=== PATIENT | female | born 1950 | race Caucasian/White ===

== ENCOUNTER 2017-04-13 08:33 | Outpatient (CLI) | payer MEDICARE | END 2017-04-13 08:34 | disposition home or self-care (01) | LOC: BICMRI 08:33 | PROVIDERS: ATTEND Family Medicine | DX: G57.12 Meralgia paresthetica, left lower limb (principal); M47.896 Other spondylosis, lumbar region; M51.36 Other intervertebral disc degeneration, lumbar region; M51.26 Other intervertebral disc displacement, lumbar region | CPT/HCPCS: 72148 ==

== ENCOUNTER 2017-05-14 13:19 | Outpatient (CLI) | payer MEDICARE ==
[2017-05-14 14:08] LABS: Hemoglobin 13.9 g/dL (12.0-16.0); Mean Corpuscular HGB CONC 35.5 g/dL (32.0-36.0); Mean Corpuscular Hemoglobin 34.4 pg (27.0-31.0); Mean Corpuscular Volume 96.9 fl (81.0-99.0); Mean Platelet Volume 7.5 fL (7.4-10.4); Platelet Count 181 thou/uL (130-400); RBC Distribution Width 11.9 % (11.5-14.5); Red Blood Cell (RBC) Count 4.04 mill/uL (4.20-5.40); White Blood Cell (WBC) Count 7.9 thou/uL (4.8-10.8)
[2017-05-14 14:14] LABS: INR-International Normal Ratio 1.1; PTT 24.5 SEC (22.9-36.1); Prothrombin Time 14.6 SEC (12.0-14.7)
[2017-05-14 14:41] LABS: Anion Gap 11 mmol/L (10-20); BUN (Urea Nitrogen) 21 mg/dL (9.8-20.1); Calc. Creatinine Clearance 0 mL/min (70-130); Calcium 9.1 mg/dL (7.8-10.44); Carbon Dioxide 27 mmol/L (23-31); Chloride 109 mmol/L (98-107); Estimated GFR-MDRD 67; Glucose 100 mg/dL (80-115); Potassium 3.9 mmol/L (3.5-5.1); Sodium 143 mmol/L (136-145)
--- NOTE | 2017-05-22 19:50 | EKG ---
Test Reason : Blood Pressure : / mmHG Vent. Rate : 073 BPM Atrial Rate : 073 BPM P-R Int : 150 ms QRS Dur : 072 ms QT Int : 400 ms P-R-T Axes : 068 083 063 degrees QTc Int : 440 ms Normal sinus rhythm Normal ECG When compared with ECG of 24-MAR-2014 11:34, No significant change was found Confirmed by ERMIAS ONTIVEROS (2) on 05/22/2017 7:49:38 PM Referred By: SUSAN Confirmed By:ERMIAS ONTIVEROS
== END 2017-05-14 13:20 | disposition home or self-care (01) ==
LOC: LABBT 13:19
PROVIDERS: ATTEND Surgery
DX: Z01.812 Encounter for preprocedural laboratory examination (principal); Z01.818 Encounter for other preprocedural examination; M51.16 Intervertebral disc disorders with radiculopathy, lumbar region
CPT/HCPCS: 80048; 85027; 85610; 85730; 93005; 93010

== ENCOUNTER 2017-05-22 10:00 | Day surgery (SDC) | payer MEDICARE ==
[2017-05-14 13:47] VITALS: BMI 26.6
[2017-05-22] MEDS ORDERED: CEFAZOLIN/Water 2 GM/20 ML SYRINGE ONE ×2 (10:26→11:29)
[2017-05-22] MEDS ORDERED: Sodium Chloride 0.9% 10 ML ONE (13:58)
[2017-05-22] MEDS ORDERED: Thrombin 5000 UNITS/5 ML VIAL ONE (13:58)
[2017-05-22] MEDS ORDERED: Fentanyl 250 MCG/5 ML VIAL ONE ×2 (14:05→17:15)
[2017-05-22] MEDS ORDERED: PROPOFOL 200 MG/20 ML VIAL ONE (15:02)
[2017-05-22] MEDS ORDERED: Ondansetron HCl/PF 4 MG/2 ML Vial ONE (15:02)
[2017-05-22] MEDS ORDERED: Lidocaine 1% PF 5 ML VIAL ONE (15:02)
[2017-05-22] MEDS ORDERED: ePHEDrine/0.9% NaCl/PF SYRINGE 50 mg/10 ml ONE (15:02)
[2017-05-22] MEDS ORDERED: PHENYLEPHRINE-NS 100 MCG/ML 10 ML SYRINGE ONE (15:02)
[2017-05-22] MEDS ORDERED: Rocuronium Bromide 50 MG/5 ML VIAL ONE (15:12)
[2017-05-22] MEDS ORDERED: Bacitracin Zinc Ointment 30 gm TUBE ONE (16:01)
[2017-05-22] MEDS ORDERED: Milk Of Magnesia 30 ML UDCUP PO PRN (17:13)
[2017-05-22] MEDS ORDERED: Fleet Enema 133 ML BOT PR PRN (17:13)
[2017-05-22] MEDS ORDERED: Bisacodyl 10 MG SUPP PR PRN (17:13)
[2017-05-22] MEDS ORDERED: Mag-Al 1200 mg/1200 mg/30 ML UDCUP PO PRN (17:13)
[2017-05-22] MEDS ORDERED: Promethazine HCl 25 MG/ML VIAL IM PRN ×2 (17:13→17:15)
[2017-05-22] MEDS ORDERED: tiZANidine HCl 4 MG TAB PO PRN (17:13)
[2017-05-22] MEDS ORDERED: Acetaminophen 325 MG TAB PO PRN (17:13)
[2017-05-22] MEDS ORDERED: Acetaminophen/Codeine 30-300mg Tablet PO PRN (17:13)
[2017-05-22] MEDS ORDERED: Ondansetron HCl/PF 4 MG/2 ML Vial IVP PRN (17:15)
[2017-05-22] MEDS ORDERED: Morphine Sulfate 2 MG/ML SYRINGE SLOW IVP PRN (17:15)
[2017-05-22] MEDS ORDERED: Promethazine HCl 25 MG/ML VIAL SLOW IVP PRN (17:15)
[2017-05-22] MEDS ORDERED: CEFAZOLIN/Water 2 GM/20 ML SYRINGE SLOW IVP SCH (20:00)
[2017-05-22] MEDS: HYDROcodone/Acetaminophen 7.5/325 mg Tablet PO PRN (20:07)
[2017-05-22] MEDS: Sodium Chloride 0.9% 1,000 ML IV SCH (20:08)
[2017-05-22] MEDS ORDERED: Pravastatin Sodium 40 MG TAB PO SCH (21:00)
[2017-05-22] MEDS: traMADol HCl 50 MG TAB PO PRN (21:01)
[2017-05-22] MEDS: CEFAZOLIN/Water 2 GM/20 ML SYRINGE SLOW IVP SCH (21:04)
[2017-05-23] MEDS: HYDROcodone/Acetaminophen 7.5/325 mg Tablet PO PRN ×2 (00:25→04:44)
[2017-05-23] MEDS: CEFAZOLIN/Water 2 GM/20 ML SYRINGE SLOW IVP SCH (05:03)
[2017-05-23] MEDS: Sodium Chloride 0.9% 1,000 ML IV SCH (05:27)
[2017-05-23 07:32] VITALS: BP 118/76; TEMP 98.2
[2017-05-23] MEDS: traMADol HCl 50 MG TAB PO PRN (08:10)
[2017-05-23] MEDS ORDERED: Morphine 5 MG/ML SYRINGE SLOW IVP PRN (08:21)
[2017-05-23] MEDS ORDERED: Hydrochlorothiazide 25 MG TAB PO SCH (09:00)
[2017-05-23] MEDS ORDERED: Valsartan 80 MG TAB PO SCH (09:00)
[2017-05-23] MEDS ORDERED: Non-Formulary Item 1 EACH (Valsartan/Hydrochlorothiazide [Valsartan-Hctz 320-12.5 Mg Tab] PO SCH (09:00)
[2017-05-23] MEDS ORDERED: Potassium Chloride 8 MEQ TAB PO SCH (09:00)
[2017-05-23] MEDS ORDERED: Magnesium Oxide 250 MG TAB PO SCH (09:00)
--- NOTE | 2017-05-23 11:10 | PRG ---
DATE OF SERVICE: 05/23/2017 Kaden Devi PA-C dictating for Christopher Landon MD This is a postoperative inpatient progress note. Ms. Kc is postoperative day #1, having undergone L1-2 left hemilaminotomy and diskectomy. Th e patient states that she is doing well postoperatively. She does have some incisional back pain and occasional left hip pain, but otherwise states that her leg pain is significantly resolved postopera tively. Pain is controlled with oral medications. She has tolerated a diet and has voided and is do ing well postoperatively. She has good strength in the bilateral lower extremities with intact sensa tion to light touch. She has not met criteria for discharge. We reviewed appropriate postoperative activity restrictions. She understands to call the office with anything additional prior to next [facility] appointment. Otherwise, we will plan for dismissal later today.
--- NOTE | 2017-05-24 14:37 | OP ---
DATE OF PROCEDURE: 05/22/2017 SURGEON: Christopher Landon M.D. GYM INSTRUCTOR: Kaden Devi PA-C. LOCATION: OR 12. PREPROCEDURE DIAGNOSIS: Left L1-L2 disk extrusion with compression of the left L2 nerve root resulti ng in low back and left leg pain. POSTPROCEDURE DIAGNOSIS: Left L1-L2 disk extrusion with compression of the left L2 nerve root result ing in low back and left leg pain. PROCEDURES: 1. Left L1-L2 hemilaminotomy, foraminotomy, and diskectomy. 2. Use of operative microscope for microdissection. DESCRIPTION OF PROCEDURE: After informed consent was obtained from the patient, the patient brought to OR 12. Proper patient pause identification was carried out. The wound was then opened with a com bination of sharp, monopolar and blunt dissection following proper sterile cleansing, preparation and draping and marking of the wound. We exposed the left L1-L2 segment. A localization film confirmed our area of interest. We then performed a left L1-L2 hemilaminotomy and foraminotomy. Microscope w as brought in for microdissection. We were able at that point to identify disk material abutting the traversing left L2 nerve root up against the left L2 pedicle. Disk material was removed and traced back to the parent disk space at the left L1-L2 and any other free fragments were removed. I ensured freedom of the left L1 and left L2 nerve root, we are satisfied with our decompression. There was n o spinal fluid leak and hemostasis was maximized throughout. The wound was then closed in anatomic l wayne following the sprinkling of vancomycin powder. The patient then emerged from anesthesia.
== END 2017-05-23 09:58 | disposition home or self-care (01) ==
LOC: SDC 10:00 → T4-B 18:18 → SDC 05-23 09:58
PROVIDERS: ATTEND Surgery
PROC: 01NB0ZZ Release Lumbar Nerve, Open Approach (ICD-10-PCS; principal; 2017-05-22)
PROC: 0SB20ZZ Excision of Lumbar Vertebral Disc, Open Approach (ICD-10-PCS; 2017-05-22)
DX: M51.16 Intervertebral disc disorders with radiculopathy, lumbar region (principal); I10 Essential (primary) hypertension; E11.9 Type 2 diabetes mellitus without complications; E78.5 Hyperlipidemia, unspecified; Z87.891 Personal history of nicotine dependence; Z79.899 Other long term (current) drug therapy; Z88.8 Allergy status to other drugs, medicaments and biological substances; Z91.048 Other nonmedicinal substance allergy status
CPT/HCPCS: 76001; J2270; A4216; J2001; J2405; J2704; J3010; J3370; J3490

== ENCOUNTER 2019-12-30 14:19 | Outpatient (CLI) | payer MEDICARE ==
--- NOTE | 2019-12-30 15:36 | RAD ---
Exam: 4 views of lumbar spine HISTORY: Low back pain with bilateral lower extremity weakness. FINDINGS: Diffuse bone demineralization. 5 lumbar type vertebra. Rightward curvature of the lumbar sp ine centered at the L2-L3 level. Lumbar spine vertebral body heights are maintained. No fracture. Mild to moderate loss of disc space height and osteophyte formation at L1-L2. Mild to moderate loss o f disc space height at L2-L3. Mild loss of disc space at L3-L4, L4-L5 and L5-S1. There are hypertrophic changes in the posterior elements from L2 through L5. Visualized sacrum and bony pelvis are intact. In the lateral neutral position, there is 2.2 mm of retrolisthesis of L2 upon L3. Upon flexion, retro listhesis is 2.1 mm. Upon extension, retrolisthesis is approximately 1 mm. IMPRESSION: 1. Rightward curvature of the lumbar spine (dextroscoliosis). 2. Multilevel degenerative changes of the lumbar spine as described above.
--- NOTE | 2019-12-30 16:57 | MRI ---
MRI OF THE LUMBAR SPINE WITHOUT CONTRAST: 12/30/19 HISTORY: Leg weakness. COMPARISON: Lumbar spine radiographs same day. FINDINGS: Aortic contour is nonaneurysmal. No hydronephrosis. Bilateral renal cortical thinning. Mild infrarenal abdominal aortic ectasia. Aorta diameter measures 21 mm. There is mild dextroscoliosis. The conus medullaris terminates near the superior L1 end plate. Levels are as follow: L1-2: Asymmetric posterior disc bulge involving the right paracentral zone lateral recess and subfora thaddeus zone. There is moderate right neural foraminal narrowing. Mild effacement of ventral CSF space of the spinal canal measuring 8 mm. L2-3: Moderate degenerative disc space height loss with circumferential disc bulge. Moderate facet ar throsis. There is mild left and moderate right neural foraminal narrowing. Mild ventral CSF space eff acement with the spinal canal measuring 9 mm. L3-4: Mild disc desiccation, height loss and small circumferential disc osteophyte complex. Minimal v entral CSF space effacement. Moderate to severe hypertrophic facet arthrosis on the right and moderat e on the left. Moderate bilateral neural foraminal narrowing. L4-5: Mild disc desiccation and height loss with a large right subforaminal and extraforaminal disc o steophyte complex abutting the exiting right L4 nerve root. There is also a superimposed small centra l disc protrusion causing minimal ventral CSF space effacement. Mild left neural foraminal narrowing. L5-S1: Normal disc height and hydration. Moderate to severe hypertrophic facet arthrosis. No neural foraminal or spinal canal narrowing. IMPRESSION: 1. Mild to moderate spondylosis as described. 2. Mild dextroscoliosis lumbar spine and associated left sided Modic type I end plate changes of L2-3. 3. High grade narrowing of the interspinous spaces which can be the source of pain with lumbar e xtension. 4. Possible partial laminectomy change on the left at L2 and L3. POS: [facility]
== END 2019-12-30 14:20 | disposition home or self-care (01) ==
LOC: TBSIIMAG 14:19
PROVIDERS: ATTEND Surgery
DX: M54.5 Low back pain (principal); M25.559 Pain in unspecified hip; M47.816 Spondylosis without myelopathy or radiculopathy, lumbar region; M48.061 Spinal stenosis, lumbar region without neurogenic claudication; M41.9 Scoliosis, unspecified
CPT/HCPCS: 72110; 72148; 72158; 82565

== ENCOUNTER 2020-02-03 14:11 | Outpatient (CLI) | payer MEDICARE ==
--- NOTE | 2020-02-03 15:34 | MRI ---
MRI LEFT SHOULDER: DATE: 02/03/2020. PROVIDED CLINICAL HISTORY: Left shoulder pain. FINDINGS: Evaluation is limited by patient motion. There is a small full-thickness partial width nonretracted tear involving the anterior distal suprasp inatus tendon at the footplate. The components of the rotator cuff appear otherwise grossly intact. The long head biceps tendon appears intact and normally located. There is extensive full-thickness articular cartilage loss involving the glenoid and portions of the humeral head. Osteophyte formation is noted arising from the humeral head. There is an inhomogeneou s appearance to the contents of the axillary recess likely reflecting synovitis or intraarticular bod ies. Numerous intraarticular bodies are seen at the anterior and posterior aspects of the joint. Degenerative tearing of the glenoid labrum is demonstrated without displacement. There is a moderate glenohumeral joint effusion. There is conspicuous intramuscular cyst formation within the supraspin atus muscle, measuring at least 5.8 cm in transverse dimension and about 1.9 cm in AP dimension. The re is greater than physiologic subacromial subdeltoid bursal fluid. Acromioclavicular osteoarthrosis is noted without significant mass effect upon the subjacent supraspinatus. Rotator cuff muscular volume appears preserved. IMPRESSION: 1. End-stage glenohumeral arthrosis. Moderate glenohumeral joint effusion with intraarticular franco s and probable synovitis. 2. Small full-thickness, partial width nonretracted tear involving the anterior distal supraspinatus tendon at the foot plate. Associated conspicuous intramuscular cyst formation within the supraspina tus muscle. 3. Acromioclavicular joint osteoarthrosis. POS: [facility]
--- NOTE | 2020-02-03 16:16 | MRI ---
MRI Cervical spine without contrast: HISTORY: Cervicalgia. COMPARISON: None FINDINGS: There is motion artifact on several sequences which does degrade image quality limiting evaluation. S equences were repeated. The craniocervical junction is unremarkable. No significant cord signal abnormality. Paravertebral soft tissues have a normal appearance and normal signal intensity. C1-2:There are degenerative changes seen at the C1-2 articulation. C2-3: Facet degenerative changes are present at this level. Minimal disc osteophyte complex is presen t. Right neural foramen is patent, but there is mild left-sided neural foraminal narrowing. Central spinal canal is patent. C3-4: Disc osteophyte complex is present at this level with facet hypertrophic changes. There is mild generalized narrowing of the central spinal canal. Mild right and moderate left-sided neural foraminal narrowing is present. C4-5: Loss of intervertebral disc height with mild endplate degenerative changes. Disc osteophyte com plex is present greater centrally. Mild facet degenerative changes are seen. Findings result in moderate central canal narrowing with flattening of the anterior aspect of the spinal cord. Moderate to severe bilateral neural foraminal narrowing is present greater on the right. C5-6: Loss of intervertebral disc height. Broad-based disc osteophyte complex is present. There are f acet degenerative changes noted. Mild facet degenerative change are seen. Moderate central canal narrowing is present with moderate to severe left and mild right-sided neural foraminal narrowing. Sl ight flattening of the anterior aspect of the spinal cord is present. C6-7: Loss of intervertebral disc height with endplate degenerative changes. Broad-based disc osteoph yte complex and mild facet degenerative changes are seen. There is moderate central canal narrowing with moderate to severe bilateral neural foraminal narrowing. C7-T1: Minimal disc osteophyte complex is present. Central spinal canal and neural foramina do appear patent. IMPRESSION: Multilevel degenerative changes with moderate and moderate to severe degrees of neural foraminal narr owing present. Greatest degree of central canal narrowing is at the C4-5 level and C5-6 levels where there is moderate central canal narrowing with flattening of the anterior aspect of the spinal cord these levels greater at the C4-5 level..
== END 2020-02-03 14:12 | disposition home or self-care (01) ==
LOC: BICMRI 14:11
PROVIDERS: ATTEND Family Medicine
DX: M25.512 Pain in left shoulder (principal); M54.2 Cervicalgia; M47.812 Spondylosis without myelopathy or radiculopathy, cervical region; M48.02 Spinal stenosis, cervical region; M19.012 Primary osteoarthritis, left shoulder; M25.412 Effusion, left shoulder; M75.102 Unspecified rotator cuff tear or rupture of left shoulder, not specified as traumatic
CPT/HCPCS: 72141

== ENCOUNTER 2020-04-19 13:45 | Inpatient (IN) | payer MEDICARE ==
[2020-05-05 13:07] VITALS: BMI 28.6
[2020-05-06] MEDS ORDERED: Vancomycin 1.5 GRAM/300 ML BAG ONE (06:06)
[2020-05-06] MEDS ORDERED: Sodium Chloride 0.9% 100 ML ONE ×2 (06:07→06:39)
[2020-05-06] MEDS ORDERED: Tranexamic Acid 1,000 MG/10 ML VIAL ONE ×2 (06:07→06:38)
[2020-05-06] MEDS ORDERED: Fentanyl 100 MCG/2 ML VIAL ONE ×4 (06:14→10:02)
[2020-05-06] MEDS ORDERED: Midazolam HCl 2 mg/2 ml Vial ONE (06:40)
[2020-05-06] MEDS ORDERED: Sodium Chloride 0.9% 10 ML ONE (06:42)
[2020-05-06] MEDS ORDERED: Fentanyl 100 MCG/2 ML VIAL SLOW IVP PRN (07:43)
[2020-05-06] MEDS ORDERED: Promethazine HCl 25 MG/ML VIAL IM PRN ×2 (07:45→09:55)
[2020-05-06] MEDS ORDERED: Ondansetron PF 4 MG/2 ML Vial IVP PRN ×2 (07:45→11:04)
[2020-05-06] MEDS ORDERED: HYDROcodone/Acetaminophen 10/325 mg Tablet PO PRN ×3 (07:45→11:04)
[2020-05-06] MEDS ORDERED: Ropivacaine 0.2% 550 ML 550 ML NERVE BLCK SCH (07:45)
[2020-05-06] MEDS ORDERED: Zolpidem Tartrate 5 MG TAB PO PRN ×2 (07:45→11:04)
[2020-05-06] MEDS ORDERED: Ketorolac Tromethamine 30 MG/ML VIAL IVP PRN (07:45)
[2020-05-06] MEDS ORDERED: traMADol HCl 50 MG TAB PO PRN ×3 (07:45→11:04)
[2020-05-06] MEDS ORDERED: Phenylephrine 10 MG/ML VIAL ONE (08:08)
[2020-05-06] MEDS ORDERED: Ondansetron HCl/PF 4 MG/2 ML Vial IVP PRN (09:55)
[2020-05-06] MEDS ORDERED: Promethazine HCl 25 MG/ML VIAL SLOW IVP PRN (09:55)
[2020-05-06] MEDS ORDERED: Dexamethasone 20 MG/5 ML VIAL ONE (10:38)
[2020-05-06] MEDS ORDERED: Lidocaine 1% PF 5 ML VIAL ONE (10:38)
[2020-05-06] MEDS ORDERED: PROPOFOL 200 MG/20 ML VIAL ONE (10:38)
[2020-05-06] MEDS ORDERED: Ondansetron PF 4 MG/2 ML Vial ONE (10:38)
[2020-05-06] MEDS ORDERED: Rocuronium Bromide 10 MG/ML (10ML VIAL) ONE (10:38)
[2020-05-06] MEDS ORDERED: Glycopyrrolate 0.2 MG/ML 5 ML SYRINGE ONE (10:38)
[2020-05-06] MEDS ORDERED: PHENYLEPHRINE-NS 100 MCG/ML 10 ML SYRINGE ONE (10:38)
[2020-05-06] MEDS ORDERED: Ropivacaine 0.5% HCl/PF (150 MG/30 ML VIAL) ONE (10:38)
[2020-05-06] MEDS ORDERED: Ondansetron ODT 4 MG TAB PO PRN (11:04)
[2020-05-06] MEDS ORDERED: Milk Of Magnesia 30 ML UDCUP PO PRN (11:04)
[2020-05-06] MEDS ORDERED: Acetaminophen 325 MG TAB PO PRN (11:04)
[2020-05-06] MEDS ORDERED: Methocarbamol 1 GM/10 ML VIAL SLOW IVP PRN (11:04)
[2020-05-06] MEDS ORDERED: Bisacodyl 10 MG SUPP PR PRN (11:04)
[2020-05-06] MEDS ORDERED: diphenhydrAMINE 50 MG CAP PO PRN (11:04)
[2020-05-06] MEDS ORDERED: tiZANidine HCl 4 MG TAB PO PRN (14:55)
[2020-05-06] MEDS: HYDROcodone/Acetaminophen 10/325 mg Tablet PO PRN ×2 (15:58→20:16)
[2020-05-06] MEDS: CEFAZOLIN 2 GM in Premix Bag 1 BAG IVPB SCH (16:00)
[2020-05-06] MEDS: Sodium Chloride 0.9% 1,000 ML IV SCH (16:00)
[2020-05-06] MEDS ORDERED: Vancomycin 1.5 GRAM/300 ML BAG 1.5 GM in Premix Bag 1 BAG IVPB SCH (18:00)
[2020-05-06] MEDS: traMADol HCl 50 MG TAB PO PRN (18:43)
[2020-05-07] MEDS: CEFAZOLIN 2 GM in Premix Bag 1 BAG IVPB SCH (00:27)
[2020-05-07] MEDS: HYDROcodone/Acetaminophen 10/325 mg Tablet PO PRN ×3 (00:27→09:26)
[2020-05-07] MEDS: Sodium Chloride 0.9% 1,000 ML IV SCH (02:33)
[2020-05-07] MEDS: traMADol HCl 50 MG TAB PO PRN (06:32)
[2020-05-07] MEDS ORDERED: Spironolactone 25 MG TAB PO SCH (08:00)
--- NOTE | 2020-05-07 08:19 | OP ---
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 PROCEDURES PERFORMED: Left reverse shoulder arthroplasty with biceps tenodesis. SOLAR SYSTEM DESIGNER: KATERINA Louise. ANESTHESIA: Dr. Mariama Solorio. The patient received a general endotracheal intubation with interscalene block. ESTIMATED BLOOD LOSS: 150 mL. TOURNIQUET TIME: None. IMPLANTS: Tornier Perform Reverse 25 mm standard base plate with a 35 mm center screw, two 22 mm screws and a 30 mm screw, glenosphere of 35 mm standard. The patient had a Flex 5A stem with a high offset tray, poly 36 +9 mm. ANTIBIOTICS: Vanc 1.5 g, Ancef 2 g. COMPLICATION: Transection of the cephalic vein. HISTORY OF PRESENT ILLNESS: Ms. Kc is a 70-year-old female with greater than 1 year of left shoulder pain. The patient had MRI evidence of a full-thickness rotator cuff tear with degenerative joint arthritis. I discussed with her the risks and benefits of left reverse shoulder arthroplasty. It was my concern that a primary reverse with repair would potentially fail long-term with the patient's age, bone quality, and health. I decided one procedure for definitive fixation with reverse with biceps tenodesis will be performed. She understood risks and benefits of procedure to include pain, scar, bleeding, infection, decreased range of motion and strength, continued pain despite surgical intervention, Vance deformity, damage to vital structures, loss of life or limb. The patient and family understood the risks and benefits, and elected to proceed. DESCRIPTION OF PROCEDURE: Time-out was performed designating the patient's left upper extremity as the operative site based on site, consents, and marked. After time-out, the procedure note, the patient had been prepped and draped in a sterile fashion. I made deltopectoral incision down through skin, came in, found the deltopectoral interval, took the cephalic vein laterally, came and exposed the conjoint tendon, took the leading edge of the pectoralis, placed a Kolbel retractor in place, exposed the patient's humerus. We came down through the subscapularis and subscapularis peeled, came down to the biceps groove, cut the biceps for tenotomy and tagged it. We peeled and took off the capsule inferiorly, taking down the osteophytes inferiorly to help with soft tissue space that was taken up by the osteophytes. After being happy with our inferior release, we dislocated the head. We could see the leading edge tear of the subscap that was in place, took some of the fatty tissue down anteriorly within the remnant biceps sling, we then exposed the head, cut and re-cut right at the articular cartilage margin. We started with our opening reamers, up to a size almost to 5 or 6. We kept in place, cut our retroversion. We removed the bone internally. We then broached up to a 5, placed our after we had reamed, cleaned the surface to cover the head, the humerus, and moved to the glenoid. We did a 360-degree release of the labrum. We were happy with our complete release, placed our 10-degree tilt inferiorly into the patient's base plate. We reamed inferiorly, making a smiley face inferiorly, we were right at the edge plus about 1.5 mm. We then placed our base plate after drilling our center screw and drilling bicortically, measuring center screw. We screwed our center skin specialist and placed anterior compression screw in, then a superior inferior locking screws into place, had good stability of the glenoid. We cleaned up around the base plate. Being happy with this, placed a 36 mm standard glenosphere in place, locking it in place. We moved back to the humerus, removed our manhole cover and placed at 12 o'clock position, the 6 mm poly, had good reduction, it was a little bit loose, and therefore I placed to make it little more snug. This was easily dislocatable. We then looked, liked the overall alignment, position, rotation. No signs of abutment inferiorly in axillary border or signs of impingement over head. We reduced. We dislocated our trial, removed all trials, drilled three #5 Ethibonds, two through the bone tunnels, one in and out going around the stem more laterally over the remnant cuff we then placed our implant into place, reduced the shoulder, repaired the subscap with #5 Ethibonds. We took our biceps, sewed it into the interval with a #1 Ethibond into its groove and through the cuff that had been repaired. We were able to close a remnant of the interval with #1 Vicryl. We washed. We closed with 0, 2-0, and skin with sukhwinder. The patient was placed in a dressing postoperatively. The patient will be admitted, 24 hours of antibiotics. See how she does tomorrow with ambulatory and functional status. My recreational assistant helped me with the positioning, opening, exposure, implant trialing, implantation, tenodesis, washing, closure, and repositioning the patient. Job ID: [id number]
[2020-05-07 08:59] VITALS: BP 125/85; TEMP 98.2
[2020-05-07] MEDS ORDERED: PRAVASTATIN 80 MG PO SCH (09:00)
[2020-05-07] MEDS ORDERED: DULoxetine 60 MG CAP PO SCH (09:00)
[2020-05-07] MEDS ORDERED: Magnesium Oxide 250 MG TAB PO SCH (09:00)
[2020-05-07] MEDS ORDERED: Losartan 25 MG TAB PO SCH (09:00)
[2020-05-07] MEDS ORDERED: Potassium Bicarbonate/Cit Ac 20 MEQ TAB PO SCH (09:00)
[2020-05-07] MEDS ORDERED: Cholecalciferol 1,000 UNITS (25 MCG) TAB PO SCH (09:00)
== END 2020-05-07 11:40 | disposition home or self-care (01) | DRG 483 ==
LOC: SURG A 05-06 05:58 → SURG B 05-06 14:20
PROVIDERS: ADMIT Orthopaedic Surgery; ATTEND Orthopaedic Surgery
PROC: 0RRK0JZ Replacement of Left Shoulder Joint with Synthetic Substitute, Open Approach (ICD-10-PCS; principal; 2020-05-06)
PROC: 0LS40ZZ Reposition Left Upper Arm Tendon, Open Approach (ICD-10-PCS; 2020-05-06)
DX: M19.012 Primary osteoarthritis, left shoulder (principal); M75.122 Complete rotator cuff tear or rupture of left shoulder, not specified as traumatic; Z20.822 Contact with and (suspected) exposure to COVID-19; E78.5 Hyperlipidemia, unspecified; N18.2 Chronic kidney disease, stage 2 (mild); F17.210 Nicotine dependence, cigarettes, uncomplicated; I12.9 Hypertensive chronic kidney disease with stage 1 through stage 4 chronic kidney disease, or unspecified chronic kidney disease; Z98.84 Bariatric surgery status; Z90.710 Acquired absence of both cervix and uterus; Z90.49 Acquired absence of other specified parts of digestive tract; Z98.890 Other specified postprocedural states; Z79.899 Other long term (current) drug therapy
CPT/HCPCS: A4306; C1713; J0690; J1100; J2250; J2370; J2405; J2704; J2795; J3010; J3370; J3490

== ENCOUNTER 2020-04-29 13:45 | Outpatient (CLI) | payer MEDICARE ==
[2020-04-29 15:52] LABS: #Basophils 0.1 10x3/uL (0.0-0.2); #Eosinphils 0.2 10x3/uL (0.0-0.5); #Monocytes 0.7 10x3/uL (0.0-1.1); %Basophils 1.3 % (0.0-2.0); %Eosinophils 2.3 % (0.0-6.0); %Lymphocytes 34.8 % (18.0-47.0); %Monocytes 7.8 % (0.0-10.0); %Neutrophils 53.6 % (40.0-75.0); Hemoglobin 13.6 g/dL (12.0-15.5); Mean Corpuscular HGB CONC 33.1 g/dL (32.0-36.0); Mean Corpuscular Hemoglobin 31.7 pg (27.0-33.0); Mean Corpuscular Volume 95.8 fl (81.6-98.3); Platelet Count 210 10x3/uL (150-450); RBC Distribution Width 12.2 % (11.5-14.5); Red Blood Cell (RBC) Count 4.29 10x6/uL (3.90-5.03); White Blood Cell (WBC) Count 9.3 10x3/uL (3.5-10.5)
[2020-04-29 15:57] LABS: Anion Gap 16 mmol/L (10-20); BUN (Urea Nitrogen) 28 mg/dL (9.8-20.1); Calc. Creatinine Clearance 0 mL/min (70-130); Calcium 9.6 mg/dL (7.8-10.44); Carbon Dioxide 23 mmol/L (23-31); Chloride 107 mmol/L (98-107); Glucose 131 mg/dL (83-110); Potassium 4.6 mmol/L (3.5-5.1); Sodium 141 mmol/L (136-145)
[2020-04-30 01:57] LABS: SARS-CoV-2 PCR by NAA Not Detected (NotDetected)
== END 2020-04-29 13:46 | disposition home or self-care (01) ==
LOC: LABBT 13:45
PROVIDERS: ATTEND Orthopaedic Surgery
DX: Z01.812 Encounter for preprocedural laboratory examination (principal); Z20.822 Contact with and (suspected) exposure to COVID-19; M19.012 Primary osteoarthritis, left shoulder; M25.812 Other specified joint disorders, left shoulder
CPT/HCPCS: 80048; 85025; U0003; U0005; 87635

== ENCOUNTER 2021-02-10 10:08 | Outpatient (CLI) | payer MEDICARE | END 2021-02-10 10:09 | disposition home or self-care (01) | LOC: BICCT 10:08 | PROVIDERS: ATTEND Physician Assistant Medical | DX: R10.84 Generalized abdominal pain (principal); R14.0 Abdominal distension (gaseous); K21.00 Gastro-esophageal reflux disease with esophagitis, without bleeding; R11.0 Nausea; R19.8 Other specified symptoms and signs involving the digestive system and abdomen; Z98.84 Bariatric surgery status; N89.8 Other specified noninflammatory disorders of vagina; Z90.710 Acquired absence of both cervix and uterus; K57.30 Diverticulosis of large intestine without perforation or abscess without bleeding; K44.9 Diaphragmatic hernia without obstruction or gangrene | CPT/HCPCS: 74177; 82565 ==

== ENCOUNTER 2021-04-12 10:02 | Day surgery (SDC) | payer MEDICARE ==
[2021-04-11 11:09] VITALS: BMI 26.6
[2021-04-12 11:29] LABS: #Basophils 0.1 thou/uL (0.0-0.2); #Eosinphils 0.1 thou/uL (0.0-0.7); #Lymphocytes 3.5 thou/uL (1.20-3.40); #Monocytes 0.5 thou/uL (0.11-0.59); %Lymphocytes 48.5 % (21.0-51.0); %Monocytes 7.4 % (0.0-10.0); %Neutrophils 41.1 % (42.0-75.0); Hemoglobin 13.7 g/dL (12.0-16.0); Mean Corpuscular HGB CONC 34.2 g/dL (32.0-36.0); Mean Corpuscular Volume 96.3 fL (78.0-98.0); Mean Platelet Volume 7.8 fL (7.4-10.4); Platelet Count 179 thou/uL (130-400); RBC Distribution Width 11.7 % (11.5-14.5); Red Blood Cell (RBC) Count 4.14 mill/uL (4.20-5.40); White Blood Cell (WBC) Count 7.2 thou/uL (4.8-10.8)
[2021-04-12] MEDS ORDERED: Fentanyl 250 MCG/5 ML VIAL ONE (11:37)
[2021-04-12] MEDS ORDERED: Bupivacaine 0.25% HCL 30 ML VIAL ONE (11:44)
[2021-04-12] MEDS ORDERED: Xylocaine 1% w/ Epi 1:100K 10 ML VIAL ONE (11:44)
[2021-04-12 11:47] LABS: Anion Gap 13 mmol/L (10-20); BUN (Urea Nitrogen) 26 mg/dL (9.8-20.1); Calc. Creatinine Clearance 52 mL/min (70-130); Calcium 9.4 mg/dL (7.8-10.44); Carbon Dioxide 24 mmol/L (23-31); Chloride 105 mmol/L (98-107); Glucose 79 mg/dL (83-110); Potassium 4.4 mmol/L (3.5-5.1); Sodium 138 mmol/L (136-145)
[2021-04-12] MEDS ORDERED: ceFAZolin 2 GM/Dextrose 50 ML IVPB ONE (11:49)
[2021-04-12] MEDS ORDERED: ePHEDrine 50 MG/ML VIAL ONE (12:06)
[2021-04-12] MEDS ORDERED: Dexamethasone 20 MG/5 ML VIAL ONE (12:06)
[2021-04-12] MEDS ORDERED: Rocuronium Bromide 10 MG/ML (10ML VIAL) ONE (12:06)
[2021-04-12] MEDS ORDERED: Esmolol 100 MG/10 ML VIAL ONE (12:06)
[2021-04-12] MEDS ORDERED: Glycopyrrolate 0.2 MG/ML 5 ML SYRINGE ONE (12:06)
[2021-04-12] MEDS ORDERED: PHENYLEPHRINE-NS 100 MCG/ML 10 ML SYRINGE ONE (12:06)
[2021-04-12] MEDS ORDERED: Lidocaine 1% PF 5 ML VIAL ONE (12:06)
[2021-04-12] MEDS ORDERED: PROPOFOL 200 MG/20 ML VIAL ONE (12:06)
[2021-04-12] MEDS ORDERED: Ondansetron PF 4 MG/2 ML Vial ONE (12:06)
[2021-04-12 12:16] LABS: Vitamin D, 25 Hydroxy 39.2 ng/ml (> 30.0)
[2021-04-12 12:21] LABS: Ferritin 87.79 ng/mL (10-291)
[2021-04-12] MEDS ORDERED: Fentanyl 100 MCG/2 ML VIAL ONE ×3 (13:38→14:35)
[2021-04-12] MEDS ORDERED: Promethazine HCl 25 MG/ML VIAL ONE (13:45)
[2021-04-12] MEDS ORDERED: HYDROcodone/Acetaminophen 5/325 mg Tablet ONE (14:56)
== END 2021-04-12 16:39 | disposition home or self-care (01) ==
LOC: SDC 10:02
PROVIDERS: ATTEND Surgery
PROC: 0WUF4JZ Supplement Abdominal Wall with Synthetic Substitute, Percutaneous Endoscopic Approach (ICD-10-PCS; principal; 2021-04-12)
PROC: 0YU64JZ Supplement Left Inguinal Region with Synthetic Substitute, Percutaneous Endoscopic Approach (ICD-10-PCS; 2021-04-12)
DX: K43.2 Incisional hernia without obstruction or gangrene (principal); K40.90 Unilateral inguinal hernia, without obstruction or gangrene, not specified as recurrent; E78.5 Hyperlipidemia, unspecified; I10 Essential (primary) hypertension; G89.29 Other chronic pain; M54.9 Dorsalgia, unspecified; Z87.891 Personal history of nicotine dependence; Z79.899 Other long term (current) drug therapy; Z88.2 Allergy status to sulfonamides; Z88.8 Allergy status to other drugs, medicaments and biological substances; Z91.048 Other nonmedicinal substance allergy status; Z98.84 Bariatric surgery status
CPT/HCPCS: 80048; 82306; 82607; 82728; 84425; 85025; 93005; 93010; C1781; J0690; J1100; J2405; J2550; J2704; J3010; J3490; S0020

== ENCOUNTER 2021-11-18 08:45 | Outpatient (CLI) | payer MEDICARE ==
[2021-11-18 10:31] LABS: Bilirubin Neg (Negative); Blood, Urine Negative (Negative); Clarity Clear (Clear); Glucose, Urine (Dipstick) Normal (Negative); Ketone, Urine Negative (Negative); Leukocyte 25 (Negative); Nitrite Negative (Negative); Protein, Urine (Dipstick) Negative (Neg-Trace); Urobilinogen Normal mg/dL (Less than 2)
[2021-11-18 10:42] LABS: #Basophils 0.1 10x3/uL (0.0-0.2); #Eosinphils 0.2 10x3/uL (0.0-0.5); #Monocytes 0.7 10x3/uL (0.0-1.1); #Neutrophils 3.7 10x3/uL (1.5-8.4); %Eosinophils 2.5 % (0.0-6.0); %Lymphocytes 45.4 % (18.0-47.0); %Monocytes 7.8 % (0.0-10.0); %Neutrophils 42.6 % (40.0-75.0); Hemoglobin 13.7 g/dL (12.0-15.5); Mean Corpuscular HGB CONC 32.5 g/dL (32.0-36.0); Mean Corpuscular Hemoglobin 31.9 pg (27.0-33.0); Mean Corpuscular Volume 97.9 fl (81.6-98.3); Mean Platelet Volume 10.2 fl (7.4-10.4); Platelet Count 175 10x3/uL (150-450); RBC Distribution Width 13.1 % (11.5-14.5); White Blood Cell (WBC) Count 8.7 10x3/uL (3.5-10.5)
[2021-11-18 10:54] LABS: Anion Gap 13 mmol/L (10-20); BUN (Urea Nitrogen) 17 mg/dL (9.8-20.1); Calc. Creatinine Clearance 0 mL/min (70-130); Calcium 9.3 mg/dL (7.8-10.44); Carbon Dioxide 26 mmol/L (23-31); Chloride 105 mmol/L (98-107); Estimated GFR 63; Glucose 89 mg/dL (83-110); Sodium 139 mmol/L (136-145)
== END 2021-11-18 08:46 | disposition home or self-care (01) ==
LOC: LABBT 08:45
PROVIDERS: ATTEND Orthopaedic Surgery Hand Surgery
DX: Z01.818 Encounter for other preprocedural examination (principal); M65.312 Trigger thumb, left thumb; M18.12 Unilateral primary osteoarthritis of first carpometacarpal joint, left hand; Z20.822 Contact with and (suspected) exposure to COVID-19
CPT/HCPCS: 80048; 81003; 85025; 87811; 93005; 93010

== ENCOUNTER 2021-11-22 07:38 | Day surgery (SDC) | payer MEDICARE ==
[2021-11-21 13:21] VITALS: BMI 26.6
[2021-11-22] MEDS ORDERED: Midazolam HCl 2 mg/2 ml Vial ONE (09:10)
[2021-11-22] MEDS ORDERED: Fentanyl 100 MCG/2 ML VIAL ONE ×3 (09:10→14:08)
[2021-11-22] MEDS ORDERED: Bacitracin Zinc Ointment 30 gm TUBE ONE ×2 (09:14→13:11)
[2021-11-22] MEDS ORDERED: Neomycin-Polymyxin 1 ML AMP ONE ×2 (09:14→13:11)
[2021-11-22] MEDS ORDERED: fentaNYL Citrate/PF 100 MCG/2 ML SYRINGE ONE ×2 (09:14→12:22)
[2021-11-22] MEDS ORDERED: Bupivacaine PF 0.5% 30 ML VIAL ONE (09:14)
[2021-11-22] MEDS ORDERED: Sodium Chloride 0.9% 100 ML ONE (09:39)
[2021-11-22] MEDS ORDERED: CEFAZOLIN 2 GM VIAL ONE (09:39)
[2021-11-22] MEDS ORDERED: Ondansetron PF 4 MG/2 ML Vial ONE (09:49)
[2021-11-22] MEDS ORDERED: Phenylephrine 10 MG/ML VIAL ONE (09:49)
[2021-11-22] MEDS ORDERED: Lidocaine 1% MPF 2 ML VIAL ONE (09:49)
[2021-11-22] MEDS ORDERED: PROPOFOL 200 MG/20 ML VIAL ONE (09:49)
[2021-11-22] MEDS ORDERED: Dexamethasone 20 MG/5 ML VIAL ONE (09:49)
[2021-11-22] MEDS ORDERED: Bupivacaine HCl 0.5%/Epinephrine 1:200,000/PF 30 ml Vial ONE (09:49)
[2021-11-22] MEDS ORDERED: Ketorolac Tromethamine 30 MG/ML VIAL ONE (13:56)
== END 2021-11-22 15:10 | disposition home or self-care (01) ==
LOC: SDC 07:38
PROVIDERS: ATTEND Orthopaedic Surgery Hand Surgery
PROC: 0LN80ZZ Release Left Hand Tendon, Open Approach (ICD-10-PCS; principal; 2021-11-22)
PROC: 0LX60ZZ Transfer Left Lower Arm and Wrist Tendon, Open Approach (ICD-10-PCS; 2021-11-22)
PROC: 0RUT07Z Supplement Left Carpometacarpal Joint with Autologous Tissue Substitute, Open Approach (ICD-10-PCS; 2021-11-22)
DX: M18.12 Unilateral primary osteoarthritis of first carpometacarpal joint, left hand (principal); M65.312 Trigger thumb, left thumb; I10 Essential (primary) hypertension; E78.5 Hyperlipidemia, unspecified; G89.29 Other chronic pain; M54.9 Dorsalgia, unspecified; Z87.891 Personal history of nicotine dependence; Z79.899 Other long term (current) drug therapy; Z88.2 Allergy status to sulfonamides; Z88.8 Allergy status to other drugs, medicaments and biological substances; Z91.048 Other nonmedicinal substance allergy status
CPT/HCPCS: 76000; C1894; J0690; J1100; J1885; J2250; J2370; J2405; J2704; J3010; J3490; S0020

== ENCOUNTER 2021-12-14 14:12 | Outpatient (CLI) | payer MEDICARE | END 2021-12-14 14:13 | disposition home or self-care (01) | LOC: LABBT 14:12 | PROVIDERS: ATTEND Orthopaedic Surgery Hand Surgery | DX: Z01.818 Encounter for other preprocedural examination (principal); Z20.822 Contact with and (suspected) exposure to COVID-19 | CPT/HCPCS: 87811; 93005; 93010 ==

== ENCOUNTER 2021-12-20 07:55 | Day surgery (SDC) | payer MEDICARE ==
[2021-12-19 11:07] VITALS: BMI 26.6
[2021-12-20 09:25] LABS: Hemoglobin 13.3 g/dL (12.0-16.0); Mean Corpuscular Hemoglobin 32.6 pg (27.0-31.0); Mean Platelet Volume 8.1 fL (7.4-10.4); Platelet Count 160 thou/uL (130-400); RBC Distribution Width 12.1 % (11.5-14.5); Red Blood Cell (RBC) Count 4.06 mill/uL (4.20-5.40); White Blood Cell (WBC) Count 7.8 thou/uL (4.8-10.8)
[2021-12-20 09:46] LABS: Anion Gap 17 mmol/L (10-20); BUN (Urea Nitrogen) 20 mg/dL (9.8-20.1); Calc. Creatinine Clearance 66 mL/min (70-130); Calcium 9.2 mg/dL (7.8-10.44); Carbon Dioxide 21 mmol/L (23-31); Chloride 108 mmol/L (98-107); Estimated GFR 60; Glucose 93 mg/dL (83-110); Potassium 5.2 mmol/L (3.5-5.1); Sodium 141 mmol/L (136-145)
[2021-12-20] MEDS ORDERED: Bacitracin Zinc Ointment 30 gm TUBE ONE (10:15)
[2021-12-20] MEDS ORDERED: Bupivacaine PF 0.5% 30 ML VIAL ONE (10:15)
[2021-12-20] MEDS ORDERED: Neomycin-Polymyxin 1 ML AMP ONE (10:15)
[2021-12-20] MEDS ORDERED: CEFAZOLIN 2 GM VIAL ONE (10:57)
[2021-12-20] MEDS ORDERED: Sodium Chloride 0.9% 100 ML ONE (10:57)
[2021-12-20] MEDS ORDERED: Propofol 500 MG/50 ML VIAL ONE (11:11)
[2021-12-20] MEDS ORDERED: Lidocaine 2% PF 5 ML VIAL ONE (11:18)
[2021-12-20] MEDS ORDERED: HYDROcodone/Acetaminophen 5/325 mg Tablet ONE (12:07)
== END 2021-12-20 12:58 | disposition home or self-care (01) ==
LOC: SDC 07:55
PROVIDERS: ATTEND Orthopaedic Surgery Hand Surgery
PROC: 0RPS04Z Removal of Internal Fixation Device from Right Carpometacarpal Joint, Open Approach (ICD-10-PCS; principal; 2021-12-20)
DX: T84.84XA Pain due to internal orthopedic prosthetic devices, implants and grafts, initial encounter (principal); T84.220A Displacement of internal fixation device of bones of hand and fingers, initial encounter; E78.5 Hyperlipidemia, unspecified; I10 Essential (primary) hypertension; G89.29 Other chronic pain; M54.9 Dorsalgia, unspecified; K21.9 Gastro-esophageal reflux disease without esophagitis; Z87.891 Personal history of nicotine dependence; Z79.899 Other long term (current) drug therapy; Z88.2 Allergy status to sulfonamides; Z88.8 Allergy status to other drugs, medicaments and biological substances; Z91.048 Other nonmedicinal substance allergy status; Z98.84 Bariatric surgery status; Y79.3 Surgical instruments, materials and orthopedic devices (including sutures) associated with adverse incidents
CPT/HCPCS: 76000; 80048; 85027; J0690; J2704; J3490; S0020

== ENCOUNTER 2024-03-19 10:54 | Outpatient (CLI) | payer OTHER | END 2024-03-19 10:55 | disposition home or self-care (01) | LOC: SCSMRI 10:54 | PROVIDERS: ATTEND Family Medicine | DX: M47.26 Other spondylosis with radiculopathy, lumbar region (principal) | CPT/HCPCS: 72100; 72148 ==

== ENCOUNTER 2025-03-02 10:10 | Outpatient (CLI) | payer MEDICARE | END 2025-03-02 10:11 | disposition home or self-care (01) | LOC: SCSULT 10:10 | PROVIDERS: ATTEND Nurse Practitioner Family | DX: N94.89 Other specified conditions associated with female genital organs and menstrual cycle (principal) | CPT/HCPCS: 76856 ==